=== PATIENT | male | born 1995 | race Two or more races ===

== ENCOUNTER 2024-04-18 01:50 | Emergency (ER) | payer BC, OTHER ==
[~2024-04-18] VITALS: Ht 190.5 cm; Wt 152.3 kg
[2024-04-18 02:00] VITALS: BP 156/90; PULSE 61; RESP 16; TEMP 96.9; O2SAT 99
[2024-04-18] MEDS: KETOROLAC TROMETH 30 MG/ML 1ML VIAL IV ONE (02:24)
[2024-04-18] MEDS: HYDROcodone-ACET 10/325MG TAB PO ONE (02:28)
[2024-04-18] MEDS: BACITRACIN TOP OINT 1 UD PKG TOP ONE (02:28)
[2024-04-18] MEDS: TETANUS-DIPTH-ACEL PERTUSSIS 0.5ML SYR Tdap IM ONE (02:50)
== END 2024-04-18 03:14 | disposition home or self-care (01) ==
LOC: ER 01:50
DX: T23.202A Burn of second degree of left hand, unspecified site, initial encounter (principal); T23.201A Burn of second degree of right hand, unspecified site, initial encounter; T23.232A Burn of second degree of multiple left fingers (nail), not including thumb, initial encounter; T23.231A Burn of second degree of multiple right fingers (nail), not including thumb, initial encounter; T31.0 Burns involving less than 10% of body surface; X08.8XXA Exposure to other specified smoke, fire and flames, initial encounter; Y93.89 Activity, other specified; Y92.89 Other specified places as the place of occurrence of the external cause; Y99.8 Other external cause status
CPT/HCPCS: 16000; 90471; 90715; 96374; 99284; J1885